=== PATIENT | female | born 1995 ===

== ENCOUNTER → 2023-04-22 | Outpatient (CLI) | payer BC ==
[2023-04-22 13:10] LABS: Basophils # (auto) 0 10 ^3/uL (0-0.2); Basophils % (auto) 0.1 % (0.0-2.0); Eosinophils # (auto) 0.1 10 ^3/uL (0-0.8); Eosinophils % (auto) 1.1 % (0.0-7.0); Hematocrit 38.9 % (36.0-46.0); Hemoglobin 12.9 g/dL (12.2-16.2); Lymphocytes # (auto) 2.2 10 ^3/uL (0.4-5.4); Lymphocytes % (auto) 17.4 % (10.0-50.0); Mean Corpuscular Hgb Conc. 33.2 g/dL (32.0-36.0); Mean Corpuscular Volume 87.5 fL (80.0-100.0); Monocytes # (auto) 0.7 10 ^3/uL (0-1.3); Monocytes % (auto) 5.4 % (0.0-12.0); Neutrophils # (auto) 9.5 10 ^3/uL (1.6-8.6); Red Blood Cells 4.44 10^6/uL (4.0-5.20); Red Cell Distribution Width 13.6 % (11.8-14.3); White Blood Cell 12.5 10^3/uL (4.4-10.8)
[2023-04-22 14:03] LABS: Amphetamine Screen, Urine Neg (NEGATIVE)
[2023-04-22 14:04] LABS: Benzodiazephine Screen, Urine Neg (NEGATIVE)
[2023-04-22 14:05] LABS: Barbiturate Scree,Urine Neg (NEGATIVE); Cocaine Screen, Urine Neg (NEGATIVE); Opiate Scree,Urine Neg (NEGATIVE)
[2023-04-22 14:06] LABS: Cannabinoid Screen, Urine Neg (NEGATIVE); Phencyclidine Screen, Urine Neg (NEGATIVE)
[2023-04-22 14:09] LABS: Thyroid Stimulating Hormone 1.39 uIU/mL (0.55-4.78)
[2023-04-22 14:17] LABS: Beta HCG, Quantitative 50096.1 mIU/mL (1.5-4.2)
[2023-04-23 06:06] LABS: Varicella Zoster IgG Antibody <135 index (Immune >165)
[2023-04-23 08:06] LABS: RPR Non Reactive (Non Reactive)
[2023-04-24 00:06] LABS: Chlamydia Trachomatis, NAA Negative (Negative); Neisseria gonorrhoeae, NAA Negative (Negative)
[2023-04-25 06:06] LABS: QuantiFERON-TB Gold Plus Negative (Negative)
== END | disposition home or self-care (01) ==
LOC: LAB 12:40
PROVIDERS: ATTEND Obstetrics & Gynecology
DX: Z11.3 Encounter for screening for infections with a predominantly sexual mode of transmission (principal); N39.0 Urinary tract infection, site not specified
CPT/HCPCS: 36415; 80307; 83036; 84439; 84443; 84702; 85025; 86592; 86703; 86762; 86787; 86850; 86870; 86900; 86901; 87086; 87340

== ENCOUNTER 2023-10-05 12:10 | Observation (INO) | payer BC ==
[~2023-10-05] VITALS: Ht 172.7 cm; Wt 95.3 kg
== END 2023-10-05 13:53 | disposition home or self-care (01) ==
LOC: LDRP 12:10 → UNDOADMOB 12:10 → LDRP 12:15 → UNDODISOB 13:53
PROVIDERS: ADMIT Obstetrics & Gynecology; ATTEND Obstetrics & Gynecology
DX: O69.81X0 Labor and delivery complicated by cord around neck, without compression, not applicable or unspecified (principal); O62.9 Abnormality of forces of labor, unspecified; O99.891 Other specified diseases and conditions complicating pregnancy; M54.9 Dorsalgia, unspecified; Z3A.38 38 weeks gestation of pregnancy
CPT/HCPCS: 59025; 76818; 81002; 94760; G0378

== ENCOUNTER 2023-10-11 20:00 | Inpatient (IN) | payer BC ==
[~2023-10-11] VITALS: Ht 172.7 cm; Wt 96.2 kg
[2023-10-11] MEDS ORDERED: LIDOCAINE 2%HCL (LOCAL ANESTH.) INJ 20ML MDV IJ PRN (20:15)
[2023-10-11] MEDS ORDERED: NALBUPHINE HCL 10 MG/1ml INJECTION IV PRN (20:15)
[2023-10-11 21:14] LABS: Basophils # (auto) 0 10 ^3/uL (0-0.2); Basophils % (auto) 0.5 % (0.0-2.0); Eosinophils # (auto) 0.2 10 ^3/uL (0-0.8); Eosinophils % (auto) 1.8 % (0.0-7.0); Hematocrit 33.4 % (36.0-46.0); Lymphocytes # (auto) 2.3 10 ^3/uL (0.4-5.4); Lymphocytes % (auto) 26.9 % (10.0-50.0); Mean Corpuscular Hemoglobin 28.3 pg (28.0-32.0); Mean Corpuscular Hgb Conc. 33.1 g/dL (32.0-36.0); Mean Corpuscular Volume 85.6 fL (80.0-100.0); Monocytes # (auto) 0.7 10 ^3/uL (0-1.3); Monocytes % (auto) 7.9 % (0.0-12.0); Neutrophils # (auto) 5.3 10 ^3/uL (1.6-8.6); Neutrophils % (auto) 62.9 % (37.0-80.0); Nucleated Red Blood Cells % 0.1 %; Red Cell Distribution Width 14.6 % (11.8-14.3); White Blood Cell 8.5 10^3/uL (4.4-10.8)
[2023-10-11 21:23] LABS: Albumin 3.7 g/dL (3.2-4.8); Alkaline Phosphatase 92 U/L (46-116); Anion Gap 9 (5-15); Aspartate Aminotransferase 14 U/L (13-40); BUN/Creatinine Ratio 10.8 (10.0-20.0); Bilirubin, Total 0.3 mg/dL (0.2-1.0); Blood Urea Nitrogen 8 mg/dL (9-23); Calcium 9.5 mg/dL (8.7-10.4); Carbon Dioxide 19 mmol/L (20-30); Chloride 110 mmol/L (98-107); Glucose 82 mg/dL (74-106); Sodium 138 mmol/L (136-145); Total Protein 6.3 g/dL (5.7-8.2)
[2023-10-11 21:29] LABS: INR 0.92 (0.9-1.15); Partial Thromboplastin Time 25.7 SEC (24.5-34.5); Prothrombin Time 9.8 sec (9.3-11.8)
[2023-10-11 21:36] LABS: Alanine Aminotransferase 9 U/L (7-40)
[2023-10-11] MEDS: LACTATED RINGER'S 1,000 ML IV SCH (22:03)
[2023-10-11 22:24] LABS: Urine Bacteria None Seen /hpf (None Seen)
[2023-10-11 22:43] LABS: Amphetamine Screen, Urine Neg (NEGATIVE); Barbiturate Scree,Urine Neg (NEGATIVE); Benzodiazephine Screen, Urine Neg (NEGATIVE); Cannabinoid Screen, Urine Neg (NEGATIVE); Cocaine Screen, Urine Neg (NEGATIVE); Opiate Scree,Urine Neg (NEGATIVE); Phencyclidine Screen, Urine Neg (NEGATIVE)
[2023-10-11 22:52] LABS: Urine Blood Negative /uL (Negative); Urine Clarity Clear (Clear); Urine Color Light-Yellow (Yellow); Urine Mucus FEW (None Seen); Urine Protein, UAD TRACE (Negative); Urine Specific Gravity 1.024 (1.001-1.035); Urine Urobilinogen Normal (Negative); Urine WBC <1 /hpf (0 - 5)
[2023-10-11] MEDS: miSOPROStol 50 MCG per PRE-CUT 1/2 TAB PO PRN (23:28)
[2023-10-12] MEDS ORDERED: METHYLERGONOVINE MALEATE 0.2 MG/ML AMP IM PRN ×2 (04:00→10:00)
[2023-10-12] MEDS ORDERED: CARBOPROST TROMETHAMINE 250 MCG/1ML VIAL IM PRN (04:00)
[2023-10-12] MEDS ORDERED: DIPHENOXYLATE W/ATROPINE 2.5 MG TAB PO PRN (04:00)
[2023-10-12] MEDS: TRANEXAMIC ACID 1,000 MG in SODIUM CHL 0.9% 100 ML IV ONE (04:00)
[2023-10-12] MEDS ORDERED: miSOPROStol 100 mcg TAB SL PRN (04:00)
[2023-10-12] MEDS ORDERED: ONDANSETRON HCL 4 MG/2 ML VIAL IV PRN (04:00)
[2023-10-12] MEDS ORDERED: miSOPROStol 100 mcg TAB PR PRN (04:00)
[2023-10-12] MEDS: PENICILLIN G POT 5MIL/D5 50ML 50 ML IV ONE (04:49)
[2023-10-12] MEDS ORDERED: TERBUTALINE SULFATE 1 MG/ML 1ML VIAL SC PRN ×2 (05:00→08:15)
[2023-10-12] MEDS: NALOXONE HCL 0.4 MG/ML VIAL IV ONE (06:30)
[2023-10-12] MEDS: fentaNYL CITRATE 100 MCG/2 ML VL IV ONE (06:30)
[2023-10-12] MEDS: ePHEDrine SULFATE 50 MG/ML AMP IV ONE (06:30)
[2023-10-12] MEDS: LACT. RINGERS/OXYTOCIN 20UNITS 1,000 ML IV SCH (08:29)
[2023-10-12] MEDS: ROPIVACAINE HCL 200 ML ONE (08:30)
[2023-10-12] MEDS: PHISODERM TOP SOLN 240ML BTL TOP PRN (09:04)
[2023-10-12] MEDS: WITCH HAZEL-GLYCERIN PAD TOP PRN (09:04)
[2023-10-12] MEDS: DERMOPLAST 60ML BOTTLE TOP PRN (09:04)
[2023-10-12] MEDS: PENICILLIN G POTASSIUM 2,500,000 UNITS in D5W 5% 50 ML IV SCH (09:43)
[2023-10-12] MEDS ORDERED: PENICILLIN G POTASSIUM 2,500,000 UNITS in D5W 5% 50 ML IV SCH (14:00)
[2023-10-12] MEDS: LACT. RINGERS/OXYTOCIN 20UNITS 500 ML IV ONE ×2 (16:21)
[2023-10-12] MEDS ORDERED: ACETAMINOPHEN 325 MG TAB PO PRN (16:45)
[2023-10-12] MEDS: IBUPROFEN 600 MG TAB PO PRN (18:27)
[2023-10-12 18:30] VITALS: BP 117/66; PULSE 65; RESP 18; TEMP 98.2; O2SAT 95
[2023-10-12 23:06] VITALS: BP 95/54; PULSE 66; RESP 18; TEMP 98.3; O2SAT 95
[2023-10-13 03:30] VITALS: BP 101/64; PULSE 55; RESP 18; TEMP 97.7; O2SAT 97
[2023-10-13] MEDS ORDERED: IBU600T PO (06:37)
[2023-10-13 07:06] LABS: RPR Non Reactive (Non Reactive)
[2023-10-13 07:18] VITALS: BP 105/56; PULSE 68; RESP 17; TEMP 97.5; O2SAT 95
[2023-10-13] MEDS ORDERED: ASCO500T11 PO (07:40)
[2023-10-13] MEDS ORDERED: FER325T PO (07:40)
[2023-10-13 09:21] LABS: Basophils # (auto) 0 10 ^3/uL (0-0.2); Basophils % (auto) 0.4 % (0.0-2.0); Eosinophils # (auto) 0.1 10 ^3/uL (0-0.8); Eosinophils % (auto) 0.9 % (0.0-7.0); Hematocrit 30.4 % (36.0-46.0); Hemoglobin 10.4 g/dL (12.2-16.2); Lymphocytes % (auto) 19.7 % (10.0-50.0); Mean Corpuscular Hemoglobin 29.1 pg (28.0-32.0); Mean Corpuscular Hgb Conc. 34.2 g/dL (32.0-36.0); Mean Corpuscular Volume 85.2 fL (80.0-100.0); Monocytes # (auto) 0.7 10 ^3/uL (0-1.3); Monocytes % (auto) 7.1 % (0.0-12.0); Neutrophils # (auto) 7.3 10 ^3/uL (1.6-8.6); Neutrophils % (auto) 71.9 % (37.0-80.0); Red Blood Cells 3.56 10^6/uL (4.0-5.20); Red Cell Distribution Width 14.8 % (11.8-14.3); White Blood Cell 10.2 10^3/uL (4.4-10.8)
[2023-10-13 11:03] VITALS: BP 112/60; PULSE 73; RESP 17; TEMP 97.4; O2SAT 95
[2023-10-13 15:03] VITALS: BP 111/57; PULSE 55; RESP 17; TEMP 97.6; O2SAT 97
[2023-10-14 19:06] LABS: Treponema pallidum Ab (FTA-Ab) Non Reactive (Non Reactive)
== END 2023-10-13 16:29 | disposition home or self-care (01) | DRG 807 ==
LOC: LDRP 20:00
PROVIDERS: ADMIT Obstetrics & Gynecology; ATTEND Obstetrics & Gynecology
PROC: 10E0XZZ Delivery of Products of Conception, External Approach (ICD-10-PCS; principal; 2023-10-12)
PROC: 3E0R3BZ Introduction of Anesthetic Agent into Spinal Canal, Percutaneous Approach (ICD-10-PCS; 2023-10-12)
PROC: 00HU33Z Insertion of Infusion Device into Spinal Canal, Percutaneous Approach (ICD-10-PCS; 2023-10-12)
PROC: 3E0DXGC Introduction of Other Therapeutic Substance into Mouth and Pharynx, External Approach (ICD-10-PCS; 2023-10-12)
DX: O99.824 Streptococcus B carrier state complicating childbirth (principal); Z37.0 Single live birth; O69.81X0 Labor and delivery complicated by cord around neck, without compression, not applicable or unspecified; Z3A.39 39 weeks gestation of pregnancy; Z88.2 Allergy status to sulfonamides
CPT/HCPCS: 36415; 59025; 59200; 59409; 62282; 80053; 80307; 81001; 81002; 85025; 85610; 85730; 86592; 86803; 86850; 86900; 86901; 94760; 96360; 96361; 96365; 96366; G0378; J2540; J2590; J7060